=== PATIENT | female | born 1955 | race Caucasian/White ===

== ENCOUNTER 2024-10-05 15:30 | Outpatient (CLI) | payer MEDICARE, MEDICAID, SELFPAY ==
--- NOTE | 2024-10-05 14:30 | DI.RAD_ITS ---
Exam(s) XR PELVIS AP EXAM: XR PELVIS AP CLINICAL HISTORY: BILATERAL HIP OA. TECHNIQUE: 2D digital imaging was performed. Single AP view. COMPARISON: CR XR HIP RT MIN 2V AND PELVIS from 06/14/2024 FINDINGS: BONES: No acute fracture is present. No bony destructive lesion is seen. JOINTS: No dislocation present. Moderate bilateral hip joint space narrowing. Prominent spurring fr om the acetabula as well as femoral heads, right greater than left. The SI joints and pubic symphysi s are unremarkable. SOFT TISSUE: Normal. IMPRESSION: No acute abnormality. Moderate to severe degenerative changes of both hips. DATA REPOSITORY: RADIATION DOSE DELIVERED:
== END 2024-10-05 15:31 | disposition home or self-care (01) ==
LOC: DIORS 15:30
PROVIDERS: PCP Family Medicine; Referring Provider Family Medicine; Visit Provider Student in an Organized Health Care Education/Training Program
DX: M16.11 Unilateral primary osteoarthritis, right hip; M16.12 Unilateral primary osteoarthritis, left hip; E11.9 Type 2 diabetes mellitus without complications; Z79.84 Long term (current) use of oral hypoglycemic drugs
CPT/HCPCS: 99204; 72170

== ENCOUNTER 2024-11-23 07:18 | Observation (INO) | payer MEDICARE, MEDICAID, SELFPAY ==
[2024-11-23] VITALS (45 sets, daily range): BP systolic 49–142; BP diastolic 19–77; PULSE 66–136; RESP 12–24; TEMP 36.1–37; O2SAT 94–100; BMI 26.4
[2024-11-23] MEDS: Celecoxib 200 MG CAP 400 MG PO (06:44)
[2024-11-23] MEDS: Acetaminophen 500 MG TAB 1000 MG PO ×2 (06:44→15:33)
--- NOTE | 2024-11-23 07:09 | ANES.PREOP_ITS ---
General Info Date of Service Date Performed: 11/23/24 Height: 5 ft 2 in Weight: 65.6 kg Body Mass Index (BMI): 26.4 Surgical Procedure: Operation Date: 11/23/24 08:00 Proposed Procedure Side Surgeon p Hip Total Hip Anterior Bilateral, Corail Bilateral Isaiah Bird MD Meds Allergies and Home Medications Allergies Allergy/AdvReac Type Severity Reaction Status Date / Time No Known Allergies Allergy Verified 11/23/24 06:24 Home Medication ?Medication ?Instructions ?Recorded cholecalciferol (vitamin D3) 25 25 mcg PO DAILY 08/09/24 mcg (1,000 unit) capsule citalopram 40 mg tablet 20 mg PO DAILY 08/09/24 magnesium oxide 400 mg (241.3 mg 400 mg PO DAILY 08/09/24 magnesium) tablet multivitamin 1 tab PO DAILY 08/09/24 riboflavin (vitamin B2) 400 mg 400 mg PO DAILY 08/09/24 tablet risperidone 2 mg tablet 2 mg PO DAILY 08/09/24 trazodone 50 mg tablet 50 mg PO DAILY 08/09/24 acetaminophen 500 mg tablet 1,000 mg (2 x 500 mg) PO TID #90 11/23/24 tabs aspirin 81 mg tablet,delayed 81 mg PO BID #60 tabs 11/23/24 release calcium carbonate (Tums Ultra) mg calcium supplement 11/23/24 celecoxib 200 mg capsule 200 mg PO BID #60 caps 11/23/24 dexamethasone 4 mg tablet 4 mg PO DAILY #2 tabs 11/23/24 oxycodone 5 mg tablet 5 mg PO Q4H PRN pain #20 tabs 11/23/24 pantoprazole 40 mg tablet,delayed 40 mg PO DAILY #30 tabs 11/23/24 release Current Visit Medications: Current Medications Generic Name Dose Route Start Last Admin Trade Name Freq PRN Reason Stop Dose Admin Acetaminophen 1,000 mg 11/23/24 06:00 11/23/24 06:44 Acetaminophen 500 Mg Tab PO 11/23/24 23:59 1,000 mg PREOP GAB Administration Celecoxib 400 mg 11/23/24 06:00 11/23/24 06:44 Celecoxib 200 Mg Cap PO 11/23/24 23:59 400 mg PREOP GAB Administration Gabapentin 300 mg 11/23/24 06:00 Gabapentin 300 Mg Cap PO 11/23/24 23:59 PREOP GAB Ringer's Solution 1,000 mls @ 80 mls/hr 11/23/24 06:00 IV 11/23/24 23:59 INFUSION GAB Cefazolin Sodium/Dextrose 2 gm in 50 mls @ 100 mls/hr 11/23/24 06:00 Ancef Duplex IVPB 11/23/24 23:59 PREOP GAB Tranexamic Acid/Sodium Chloride 1,000 mg in 100 mls @ 600 mls/hr 11/23/24 06:00 IVPB 11/23/24 23:59 PREOP GAB Tranexamic Acid/Sodium Chloride 1,000 mg in 100 mls @ 600 mls/hr 11/23/24 06:00 IVPB 11/23/24 23:59 DIRECTED GAB IV Miscellaneous Supplies 1 each 11/23/24 06:00 Iv Access IV 11/23/24 23:59 DIRECTED GAB Sodium Chloride 0 ml 11/23/24 06:00 Normal Saline Flush 10 Ml Syr IV 11/23/24 23:59 PRN PRN Sodium Chloride 0 ml 11/23/24 06:00 Normal Saline 10 Ml Vial IJ 11/23/24 23:59 DIRECTED PRN Sterile Water 0 ml 11/23/24 06:00 Water,Injection,Sterile 10 Ml Vial IJ 11/23/24 23:59 DIRECTED PRN PFSH Active Problems Active Problems: Problem Status Onset Code Osteoarthritis of left hip Acute M16.12 Osteoarthritis of right hip Acute M16.11 Ventricular premature complex Acute I49.3 Type 2 diabetes mellitus Acute E11.9 Recurrent major depressive episodes Acute F33.9 PTSD (post-traumatic stress disorder) Acute F43.10 Polyp of colon Acute K63.5 Osteoporosis Chronic M81.0 Lung nodule Acute R91.1 Enlarged heart Acute I51.7 Chronic back pain Acute M54.9, G89.29 Anxiety Chronic F41.9 Medical History Medical History Hx of Impaired cognition Depression Bilateral bunions Chest pain Amnesia Medical History Comments:: Lots of nausea, 1997 Surgical History Surgical History History of varicose vein stripping History of colonoscopy Tobacco Smoking/Tobacco Use Status: Former Tobacco Use Alcohol Alcohol Intake: former Substance Use Substance use type: does not use Vital Signs and Lab Results Vital Signs Most Recent Vital Signs in EMR: Most Recent Vital Signs Temp Pulse Resp BP Pulse Ox 36.6 C 79 16 142/77 H 99 11/23/24 06:33 11/23/24 06:33 11/23/24 06:33 11/23/24 06:33 11/23/24 06:33 Lab Results Blood Type / Crossmatch: Antibody Screen Pending 11/23/24 Complete Blood Count: No Data to Display Complete Metabolic Panel: No Data to Display Liver Function Panel: No Data to Display Coagulation Panel: No Data to Display Cardiac Panel: No Data to Display Arterial Blood Gas: No Data to Display Venous Blood Gas: No Data to Display Pancreas Panel: No Data to Display Thyroid Panel: No Data to Display Infectious Disease: No Data to Display Blood Cultures: No Data to Display Toxicology Panel: No Data to Display Anesthesia Assessment and Plan Anesthesia History Personal History: PONV Family History: No Family History of Anesthesia Complications Exercise Tolerance Exercise Tolerance: Metabolic Equivalents>4 Pertinent Negatives Pertinent Negatives: No Symptoms of GERD Cardiac & Pulmonary Exam Cardiac Exam: Normal S1/S2 Heart Sounds Pulmonary Exam: Clear Bilateral Breath Sounds Implantable Cardiac Device Does patient have a Pacemaker or an ICD?: No Airway Exam Known Difficult Airway: No Mallampati Class: 2 Mouth Opening: Normal (> 3cm) Thyromental Distance: Less than 3 cm Neck Range of Motion: Full ROM Neck Circumference: Normal Teeth Condition: Removable Dentures/Plates Upper and Removable Dentures/Plates Lower ASA Classification ASA Score: ASA 2 Emergency Case?: No NPO Status NPO Status: NPO Clears >2 hours, Solids >8 hours Anesthesia Plan Resuscitation Status: Full Code Anesthesia Technique: Spinal Anesthesia Airway Planned: Natural Airway Monitors Used: Standard Monitors Preoperative Comments:: Pt. states she had a stress test in [place] this year that was normal. Denies chest pressure/pain or SOB other than one event when she came up the stairs more quickly. Does not have any information on enlarged heart and does not believe she has ever had an echo. Recent EKG was normal. No murmur heard.
[2024-11-23] MEDS: Lactated Ringers 1,000 ML 80 ML IV (07:15)
--- NOTE | 2024-11-23 07:20 | PDOC.DSDIS_ITS ---
Date of service: 11/23/24 Discharge Plan Disposition Patient Disposition: Home Condition: Good Discharge Details Reason For Visit: B/L THR Attending Provider: Isaiah Bird Primary Care Provider: Kapil Valencia Home Meds and New Rx's Prescriptions: New celecoxib 200 mg capsule 200 mg PO BID Qty: 60 0RF aspirin 81 mg tablet,delayed release (DR/EC) 81 mg PO BID Qty: 60 0RF acetaminophen 500 mg tablet 1,000 mg PO TID Qty: 90 3RF pantoprazole 40 mg tablet,delayed release (DR/EC) 40 mg PO DAILY Qty: 30 0RF dexamethasone 4 mg tablet 4 mg PO DAILY Qty: 2 0RF oxycodone 5 mg tablet 5 mg PO Q4H MDD 6 tabs PRN (Reason: pain) Qty: 20 0RF Continued cholecalciferol (vitamin D3) 25 mcg (1,000 unit) capsule 25 mcg PO DAILY citalopram 40 mg tablet 20 mg PO DAILY magnesium oxide 400 mg (241.3 mg magnesium) tablet 400 mg PO DAILY multivitamin Tablet 1 tab PO DAILY risperidone 2 mg tablet 2 mg PO DAILY trazodone 50 mg tablet 50 mg PO DAILY riboflavin (vitamin B2) 400 mg tablet 400 mg PO DAILY calcium carbonate [Tums Ultra] 400 mg calcium (1,000 mg) tablet,chewable Patient Comments: our box shows ultra strength calcium carbonate 1,000mg Discontinued acetaminophen 500 mg tablet 1,000 mg PO TID PRN aspirin [Adult Low Dose Aspirin] 81 mg tablet,delayed release (DR/EC) 81 mg PO DAILY celecoxib [Celebrex] 100 mg capsule 100 mg PO BID ibuprofen 600 mg tablet 600 mg PO BID PRN (Reason: to manage hip and back pain) tramadol 50 mg tablet 25 mg PO TID Discharge Instructions Additional Instructions: Total Hip Discharge Instructions Activity: The most important activity is to walk. You should try to take short walks a few times a day. You have no restrictions on movement or positioning, but do not try to force what you do. You will find some stiffness and weakness with hip flexion (lifting your knee). Do not try to strengthen this too early, continue to practice walking and stairs and this will come. - Outpatient physical therapy can be helpful to help return you to a normal gait and improve your flexibility and strength. This can start around 2 weeks. For some patients, it?s not necessary. Usually this is determined at the time of discharge or at the first post-operative visit. - You should wear the MYRNA hose on both legs for 2 weeks. Dressing: Keep the surgical dressing in place for at least one week. After the first week it may be removed and replace with light gauze and tape or nothing. It may get wet after 3 days but avoid soaking the dressing. If it gets wet, just lightly pat dry. It is important to always keep some gauze between skin folds, especially when you are sitting. Spend some time with the wound exposed when you are lying flat as the incision does wrinkle onto itself. Medications: - You should take Tylenol and an anti-inflammatory Celebrex as your primary pain control medications. If the Celebrex is too expensive or not covered, please call the office for another alternative (Advil/Ibuprofen or Naproxen/Aleve). - You have been prescribed a stronger pain medication Oxycodone for breakthrough pain, take as needed as prescribed. - You have also been prescribed a stomach acid reduction agent Pantoprozole to help reduce stomach acid and reflux. - You have also been prescribed Decadron to help with post-operative nausea and pain. You will take this for two days starting tomorrow. - You will be taking Aspirin 81mg twice a day for DVT prevention unless instructed otherwise. - If you have constipation you should take Colace or Miralax (both [id number]). It takes most people 3-4 days to have a bowel movement. Follow-up: 2 weeks If you have any acute concerns or questions, please do not hesitate to contact the office at [phone]. You may contact Dr. Bird with any questions after hours through the hospital at [phone] or on his cell phone at [phone]. Referrals: Isaiah Bird MD [ [facility] STAFF PHYSICIAN] - Equipment/Supplies: Walker Activity:: Activity as Tolerated Shower/Bathe:: 72 hours Diet:: As Tolerated Discharge Orders Discharge Orders: Discharge Order (Routine); Ordered 11/23/24 Ordered By: Scooter Ford DS: Diagnosis Discharge Diagnosis (1) Osteoarthritis of left hip: Status: Acute (2) Osteoarthritis of right hip: Status: Acute
[2024-11-23] MEDS: ceFAZolin 2 GM/50 ML BAG IVPB (07:47)
[2024-11-23] MEDS: TRANEXAMIC ACID/SOD. CHL. 1,000 MG/100 ML BAG 600 MG IVPB ×2 (08:02→09:25)
--- NOTE | 2024-11-23 08:08 | ROE_ITS ---
Operative Note Operative Note PRE-OP DIAGNOSIS: Bilateral Hip Osteoarthritis POST-OP DIAGNOSIS: same PROCEDURE: Bilateral Anterior Total Hip Arthroplasty with Intraoperative Navigation SURGEON: Isaiah Bird BILLET HEATER: Scooter Ford ANESTHESIA TYPE: Spinal Refer to Anesthesia Record ESTIMATED BLOOD LOSS: 500 PATHOLOGY: none sent COMPLICATIONS: Other (There was a small posterolateral fracture of the left greater trochanter, less than 1 cm. A similar type avulsion fracture was on the right side as well.) Patient was transported to: PACU Patient's condition: stable Implants: RIGHT: 1. Depuy [place] Acetabular Component, 54mm 2. Depuy Acetabular Liner, [id number] 3. Depuy Corail Standard 125 degree collared Femoral Stem, Size 13 4. Depuy Altrx Ceramic Femoral Head, Size 36+8.5mm LEFT: 1. Depuy [place] Acetabular Component, 54mm 2. Depuy Acetabular Liner, [id number] 3. Depuy [place] Standard Collared Femoral Stem, Size 13 4. Depuy Altrx Ceramic Femoral Head, Size 36+1.5mm Indications: I have seen Cristiana in clinic for symptoms of bilateral hip arthritis, confirmed with radiographic findings. She has exhausted nonoperative methods and was having significant limitations in daily function and desired better function and less pain. I discussed the technical details of a hip replacement. I explained the risks of the procedure to include, but not limited to, bleeding, infection, pain, stiffness, fracture, damage to nerves and vessels, damage to muscles and tendons, loosening, instability, leg length inequality, need for repeat procedure, blood clot and cardiopulmonary demise. Despite these risks, Cristiana elected to proceed. Findings: There was significant signs of arthritis throughout both hips with osteophytes throughout. Procedure Description: Cristiana was greeted in the preoperative holding area where the correct side was identified and marked. The consent was reviewed with the patient and signed. The history and physical was updated. All questions were answered. She was taken back to the operating room. A spinal anesthestic was then administered. The patient was placed into the supine position on the HANA table. Both feet were wrapped with [place]br[place] cotton wrap along with Coban. LEFT Side The feet were placed in specialized boots for the HANA table, well seated within the boot and secured. SCDs were applied. The patient was then slid down onto a peroneal post. A preoperative AP hip was obtained to serve as a reference for determining leg lengths. Prophylactic antibiotics in the form of Cefazolin were administered. 1g of Tranxemic Acid was given intravenously within 30 minutes of incision. The left leg was then prepped with Chloraprep and draped in a standard fashion. A second prep with Chloraprep was performed prior to placement of a shower-curtain type drape with Iodine impregnated skin protection. A timeout to confirm correct identity, side and site, procedure, allergies, anesthesia, and medical concerns was performed. An obliquely oriented incision was made starting lateral to the ASIS and running distal over the Tensor Fascia Zulay (TFL) muscle belly toward the fibular head, approximately 10cm. The skin and soft tissue was dissected sharply, through Ted?s fascia, and to the fascia of the TFL. With the fascia and superior border of the IT band identified, the fascia was incised with a new knife just above any perforators from the IT band. The TFL muscle belly was bluntly dissected away from the fascia and moved laterally. The fat between TFL and rectus was identified to ensure the dissection was not within the TFL. Blunt dissection created space between abductors and the capsule and retractor was placed over the lateral femoral neck. The fibers of the rectus femoris tendon were identified and these were freed from the anterior capsule. A second cobra retractor was placed around the medial femoral neck. The TFL was further retracted laterally to show the deep fascia. Careful dissection through this layer identified three main crossing vessels of the lateral femoral circumflex. These were cauterized in multiple locations and then cut without any noticeable bleeding. The TFL was further released bluntly from the deep fascia to expose anterior hip capsule and fat The soft tissue orthopaedic retractor was then placed beneath the TFL and against sartorius and medial soft tissues to protect and retract the soft tissues. A T-capsulotomy was then performed starting at the superior lateral acetabulum and moving distally to the intertrochanteric ridge. These capsular flaps were tagged with a No. 1 Ethibond and elevated from within. The capsular flaps were released to the shoulder of the lateral neck and to the lesser trochanter to give excellent visualization of the proximal femur. There were abundant osteophyte seen throughout the proximal femur as well as the rim of the acetabulum. After removing osteophytes from the neck, a neck osteotomy was performed using an oscillating saw based on preoperative templates. This cut started in the shoulder and of the lateral neck and exited medially. The saw was at all times directed medially to avoid injury to the greater trochanter. Gentle traction was applied to the leg and the osteotomy opened. The femoral head was removed with a corkscrew, making sure to protect the TFL on its exit. This was measured on the back table to determing the starting reamer size. Portions of the rectus obscuring visualization were minimally elevated off the superior acetabulum. An anterior retractor was placed over the anterior wall between capsule and labrum and attached to the Gripper retraction system. A posterior retractor was placed similarly. This provided excellent visualization. The contents of the cotyloid fossa were removed with electrocautery and the labrum was removed with a knife. There was a notable floor osteophyte. There was significant chondromalacia of the superior acetabulum. Acetabular reaming began with a 49mm reamer. This first reaming was directed anterior to posterior and medial to get down to the true floor. This was inspected and reamed until the true floor was reached. The anterior retractor was then released and entry and exit was provided by traction on the capsular flaps. I then reamed sequentially up to a 54mm reamer where good fit was obtained. The larger reamers were oriented based on anatomical reference of the anterior and lateral jordan to ensure proper abduction and anteversion. Positioning and size was confirmed with the fluoroscopy. A 54mm Depuy [place] acetabular component was selected. The acetabulum was reamed around the periphery with the selected acetabular size to prevent a rim fit. The deep tissues were irrigated. The acetabular component was then impacted in a position of about 40-45 degrees of abduction and 15-20 degrees of anteversion, using the patient?s anatomy as the ultimate landmark. Fluoroscopy was used to confirm this. There was e xcellent slice cutting machine operator helper of the acetabular component and the inserting handle was removed. The acetabular liner, Depuy [id number] polyethylene liner, was inserted and lined up with the tines of the acetabular component. There was no soft tissue interposition. The liner was then impacted into position and confirmed to be well-seated. A portion of the dewayne-articular cocktail was then injected around the acetabulum into the capsule and periosteum. This cocktail consisted of 123mg of Ropivacaine, 0.25mg of Epinephrine, 0.04mg of Clonidine, and 15mg of Ketorolac, diluted to 50cc. Traction was released from the femur. The leg was rotated to 120 degrees. Any remaining medial capsule was released until the lesser trochanter was easily palpable. A Babcock retractor was placed medially. The lateral capsule was further released into the shoulder to allow access to the greater trochanter. A Babcock retractor was placed over the greater trochanter which allowed the trochanter to flip in front of the capsule for excellent exposure. The leg was brought down into maximal extension and 20 degrees of adduction while ensuring there was no impingement on the acetabulum. Any remnant capsule within the trochanter was released. Piriformis and obturator externis were identified and protected. There was excellent access to the proximal femur. The lateral neck remnant was removed with a rongeur. A blunt canal probe was used to identify the canal and trajectory for later broaching. A box osteotome initiated the broach course. A small curved rasp and a curved curette were used to work laterally. Broaching then began with a size 8 Corail broach. This was inserted manually around the trochanter and into the canal before mallet blows. The broach was seated to a few millimeters below the cut level based on the neck cut and the preoperative template. Sequential broaching was continued manually until a tight fit was obtained with good rotational control of the femur. A trial standard neck was inserted along with a +1.5 trial head. The leg was brought out of extension and adduction and then reduced with traction and internal rotation. The leg was stable anteriorly in a position of 30 degrees of extension and 90 degrees of external rotation. Fluoroscopy was used to ensure there was no fracture and the stem was seated well. Leg lengths were checked with an AP pelvis and pelvic reference points. [employer] navigation system was used to confirm appropriate positioning and leg length and offset. Once content with the desired offset and leg lengths, the leg was brought back into extension, external rotation and adduction. The periosteum and surrounding tissue was injected with remaining portion of the dewayne-articular cocktail. The proximal femur was irrigated as well as the deep tissues. The ICONICuy Corail standard collared stem, size 13, was then manually inserted into the proximal femur making sure to control rotation. It was then malleted into position with light blows, giving breaks to allow bone expansion and decrease risk of fracture. The selected Depuy Altrx Ceramic Head, size 36+1.5mm, was then placed onto the clean and dry trunnion and secured with impaction onto the tapered fit. The leg was brought back out of extension and adduction and reduced with traction and internal rotation. Stability was confirmed with no shuck at 90 degrees of external rotation and 30 degrees of extension. No impingement through range of motion arc. Final x-ray images were obtained with fluoroscopy to confirm adequate positioning and no intraoperative fracture. There was noticed to be a small avulsion type fracture from the lateral aspect of the tip of the greater trochanter, less than 1 cm. It was hinged, opening medially but not from the host bone. The deep tissues were thoroughly irrigated with Surgiphor betadine solution. The second dose of TXA 1g was administered intravenously.The capsule was then reapproximated with the previously placed Ethibond sutures. The TFL fascia was finally closed with a No. 2 Stratafix, barbed suture. Deep tissues were then reapproximated with 0 Vicryl and a running 2-0 Vicryl. The skin was closed with a running 4-0 Monocryl in a subcuticular fashion. This was reinforced with skin glue. A Mepilex silver dressing was applied. RIGHT Side Keeping the back table sterile, the drapes were removed, light handles changed, and fluoroscopy switched rooms sides. Once again, a AP hip was obtained to serve as a reference for determining leg lengths. The right leg was then prepped with Chloraprep and draped in a standard fashion. A second prep with Chloraprep was performed prior to placement of a shower-curtain type drape with Iodine impregnated skin protection. A timeout was once again performed to ensure that there were no issues to proceed. An obliquely oriented incision was made starting lateral to the ASIS and running distal over the Tensor Fascia Zulay (TFL) muscle belly toward the fibular head, approximately 10cm. The skin and soft tissue was dissected sharply, through Ted?s fascia, and to the fascia of the TFL. With the fascia and superior border of the IT band identified, the fascia was incised with a new knife just above any perforators from the IT band. The TFL muscle belly was bluntly dissected away from the fascia and moved laterally. The fat between TFL and rectus was identified to ensure the dissection was not within the TFL. Blunt dissection created space between abductors and the capsule and retractor was placed over the lateral femoral neck. The fibers of the rectus femoris tendon were identified and these were freed from the anterior capsule. A second cobra retractor was placed around the medial femoral neck. The TFL was further retracted laterally to show the deep fascia. Careful dissection through this layer identified three main crossing vessels of the lateral femoral circumflex. These were cauterized in multiple locations and then cut without any noticeable bleeding. The TFL was further released bluntly from the deep fascia to expose anterior hip capsule and fat The soft tissue orthopaedic retractor was then placed beneath the TFL and against sartorius and medial soft tissues to protect and retract the soft tissues. A T-capsulotomy was then performed starting at the superior lateral acetabulum a nd moving distally to the intertrochanteric ridge. These capsular flaps were tagged with a No. 1 Ethibond and elevated from within. The capsular flaps were released to the shoulder of the lateral neck and to the lesser trochanter to give excellent visualization of the proximal femur. A neck osteotomy was performed using an oscillating saw based on preoperative templates. This cut started in the shoulder and of the lateral neck and exited medially. The saw was at all times directed medially to avoid injury to the greater trochanter. Gentle traction was applied to the leg and the osteotomy opened. The femoral head was removed with a corkscrew, making sure to protect the TFL on its exit. This was measured on the back table to determing the starting reamer size. Portions of the rectus obscuring visualization were minimally elevated off the superior acetabulum. An anterior retractor was placed over the anterior wall between capsule and labrum and attached to the Gripper retraction system. A posterior retractor was placed similarly. This provided excellent visualization. The contents of the cotyloid fossa were removed with electrocautery and the labrum was removed with a knife. There was a notable floor osteophyte. There was significant chondromalacia of the superior acetabulum. Acetabular reaming began with a 49mm reamer. This first reaming was directed anterior to posterior and medial to get down to the true floor. This was inspected and reamed until the true floor was reached. The anterior retractor was then released and entry and exit was provided by traction on the capsular flaps. I then reamed sequentially up to a 54mm reamer where good fit was obtained. The larger reamers were oriented based on anatomical reference of the anterior and lateral jordan to ensure proper abduction and anteversion. Positioning and size was confirmed with the fluoroscopy. A 54mm Depuy [place] acetabular component was selected. The acetabulum was reamed around the periphery with the selected acetabular size to prevent a rim fit. The deep tissues were irrigated. The acetabular component was then impacted in a position of about 40-45 degrees of abduction and 15-20 degrees of anteversion, using the patient?s anatomy as the ultimate landmark. Fluoroscopy was used to confirm this. There was excellent slice cutting machine operator helper of the acetabular component and the inserting handle was removed. The acetabular liner, Depuy [id number] polyethylene liner, was inserted and lined up with the tines of the acetabular component. There was no soft tissue interposition. The liner was then impacted into position and confirmed to be well-seated. A portion of the dewayne-articular cocktail was then injected around the acetabulum into the capsule and periosteum. This cocktail consisted of 123mg of Ropivacaine, 0.25mg of Epinephrine, 0.04mg of Clonidine, and 15mg of Ketorolac, diluted to 50cc. Traction was released from the femur. The leg was rotated to 120 degrees. Any remaining medial capsule was released until the lesser trochanter was easily palpable. A Babcock retractor was placed medially. The lateral capsule was further released into the shoulder to allow access to the greater trochanter. Exposure was quite challenging. The posterior capsule was notably contracted and the tissues around the hip are also contracted. I sequentially continue to release tissue from the greater trochanter. Then, the leg was brought down into maximal extension and 20 degrees of adduction while ensuring there was no impingement on the acetabulum. Any remnant capsule within the trochanter was released. Obturator externis were identified and protected however, some of the attachment of the posterior capsule released off of osteophytes from the posterior femoral neck to allow medialization of the femur. At this point we now had appropriate access to the proximal femur. The lateral neck remnant was removed with a rongeur. A blunt canal probe was used to identify the canal and trajectory for later broaching. A box osteotome initiated the broach course. A small curved rasp and a curved curette were used to work laterally. Broaching then began with a size 8 [place]ail broach. This was inserted manually around the trochanter and into the canal before mallet blows. The broach was seated to a few millimeters below the cut level based on the neck cut and the preoperative template. Sequential broaching was continued manually until a tight fit was obtained with good rotational control of the femur. A trial standard 135 degree neck was inserted along with a +1.5 trial head. The leg was brought out of extension and adduction and then reduced with traction and internal rotation. The leg was stable anteriorly in a position of 30 degrees of extension and 90 degrees of external rotation. Fluoroscopy was used to ensure there was no fracture and the stem was seated well. Leg lengths were checked with an AP pelvis and pelvic reference points. [employer] vigation system was used to confirm appropriate positioning and leg length and offset. To better recreate offset leg length, I switched to a 125 degree standard neck with a +8.5 mm head. Once content with the desired offset and leg lengths, the leg was brought back into extension, external rotation and adduction. The periosteum and surrounding tissue was injected with remaining portion of the dewayne-articular cocktail. The proximal femur was irrigated as well as the deep tissues. At this point there was noted to be an avulsion type fracture from the lateral aspect of the greater trochanter tip, less than 1 cm, similar to the contralateral side. It was stable and left in place. There is no distal extension of fracture. The Depuy [place] standard 125 deg collared stem, size 13, was then manually inserted into the proximal femur making sure to control rotation. It was then malleted into position with light blows, giving breaks to allow bone expansion and decrease risk of fracture. The selected Depuy Altrx Ceramic Head, size 36+8.5mm, was then placed onto the clean and dry trunnion and secured with impaction onto the tapered fit. The leg was brought back out of extension and adduction and reduced with traction and internal rotation. Stability was confirmed with no shuck at 90 degrees of external rotation and 30 degrees of extension. No impingement through range of motion arc. Final x-ray images were obtained with fluoroscopy to confirm adequate positioning and no intraoperative fracture. The deep tissues were thoroughly irrigated with Betadine solution. The capsule was then reapproximated with the previously placed Ethibond sutures. The TFL fascia was finally closed with a No. 2 Stratafix, barbed suture. Deep tissues were then reapproximated with 0 Vicryl and a running 2-0 Vicryl. The skin was closed with a running 4-0 Monocryl in a subcuticular fashion. This was reinforced with skin glue. A Mepilex silver dressing was applied. At the end of the case, all counts were correct. Cristiana was transferred to the hospital bed without difficulty. Sadeta has a good prognosis. Physical therapy will start today and without restrictions, weight-bearing as tolerated. Aspirin 81mg BID will be used for DVT prophylaxis. Date of Procedure: 11/23/24
--- NOTE | 2024-11-23 09:13 | DI.RAD_ITS ---
Exam(s) XR HIP LT IN OR EXAM: XR HIP LT IN OR CLINICAL HISTORY: LEFT HIP OA. TECHNIQUE: 2D and realtime digital imaging was performed. COMPARISON: No exams were available for comparison FINDINGS: A hard copy image shows placement of a left hip prosthesis. The alignment appears satisfactory. Please see procedure note for details. Fluoro time: 34.0seconds RADIATION DOSE DELIVERED: Ka,r=3.03 mGy
--- NOTE | 2024-11-23 10:57 | DI.RAD_ITS ---
Exam(s) XR HIP RT IN OR EXAM: XR HIP RT IN OR CLINICAL HISTORY: RIGHT HIP OA. TECHNIQUE: 2D and realtime digital imaging was performed. COMPARISON: CR XR PELVIS AP from 10/05/2024 FINDINGS: A hard copy image shows placement of a right hip prosthesis. The alignment appears satisfactory. Please see procedure note for details. Fluoro time: 37.8seconds RADIATION DOSE DELIVERED: Ka,r=3.44 mGy
--- NOTE | 2024-11-23 13:08 | W.ANESPOSTOP ---
Postoperative Evaluation Date, Time and Location Date Performed: 11/23/24 Time Performed: 12:15 Patient Location: PACU Vital Signs Most Recent Imported Vital Signs: Most Recent Vital Signs Temp Pulse Resp BP Pulse Ox 36.4 C L 97 H 18 96/62 L 100 11/23/24 12:47 11/23/24 12:47 11/23/24 12:47 11/23/24 12:47 11/23/24 12:47 Pain Score Most Recent Pain Score: Most Recent Pain Score Pain Level 0 11/23/24 12:47 Assessment Mental Status: Awake (Alert & Oriented to Patient Baseline) Airway and Respiratory Function: Patent airway with normal (patient baseline) respiratory exam Cardiovascular Function: Hemodynamically Stable Hydration Status: Adequately Hydrated Nausea & Vomiting: No Nausea or Vomiting Pain: Pt. Denies Any Pain Peripheral Nerve Block: Patient did not receive a nerve block
--- NOTE | 2024-11-23 14:25 | PDOC.ANES ---
Date of service: 11/23/24 Time of Service: 14:25 Anesthesia Note Report Anesthesia Note: Called to evaluate patient for orthostatic hypotension. Pt. in DSU sitting in chair with HR in 80's. Reportedly BP down to 40's systolic and HR up to 130's upon standing and feeling faint. She now feels better. Gave 250ml LR bolus with improvement, although still orthostatic but now low BP is 80's systolic and HR into 120's. Will administer one more 250ml Bolus and administer 5mg PO Midodrine and recheck. If improved will move to PT. If not will evaluate option of observation in the hospital for the night. Will also encourage PO fluids.
[2024-11-23] MEDS: Midodrine 2.5 MG TAB 5 MG PO ×2 (14:45→21:05)
--- NOTE | 2024-11-23 16:19 | PT.INIE ---
PT Notes Visit Reasons: B/L THR Physical Therapy Day Surgery Initial Evaluation Date: 11/23/24 Referring Doctor: Scooter Ford/ Dr Bird PT Orders: PT CONSULT: PT evaluation s/p Ortho Surgery Precautions: WBAT BLE, TEDs x 2 weeks, Fall risks, Standard, Monitor Vitals/ BP Patient Profile/Admitting Diagnosis: Pt is a 69 yo female presenting s/p elective B KIARA d/t OA under spinal anesthesia. Pt post op complicated by hypotension . PMHX: Osteoarthritis of left hip (Acute) Osteoarthritis of right hip (Acute) Ventricular premature complex (Acute) Type 2 diabetes mellitus (Acute) Recurrent major depressive episodes (Acute) PTSD (post-traumatic stress disorder) (Acute) Polyp of colon (Acute) Osteoporosis (Chronic) Lung nodule (Acute) Enlarged heart (Acute) Chronic back pain (Acute) Anxiety (Chronic) Medical History Impaired cognition Depression Bilateral bunions Chest pain Amnesia Social History/Home Situation: Pt lives in 1 story home with 3 SHASTA with railing. Pt independent with ambulation, ADL and light meal prep prior to surgery. Her daughter recently provides assistance with laundry and transportation. Laundry is in the basement. Equipment Owned/DME: [employer] just purchased 1 week ago Subjective: Pt reports she would like to try to get to the bathroom prior to walking in the jar[place] ( via translation from her daughter) Objective: General Observation: pale face female in Semifowler position on stretcher with ice packs to B hips. Her daughter is present providing translation. Pt drinking water. Nurse present. Mental Status: Alert and oriented x 4. per translation by daughter. Pt able to follow gestures and answer basic questions of pain, lightheadedness and nausea in mongolian. Pain: B hips 3/10 via translation by daughter Vitals: Supine BP 96/62 HR 97 Sit BP 107/66 HR 106 Stand BP 49/19 HR 123 supine BP 89/50 HR 106 ROM: Right Upper Extremity: WFL Left Upper Extremity: WFL Right Lower Extremity: WNL KNEE AND ANKLE; Hip flexion 92 degrees, hip abduction 10 degrees, extension 5 degrees Left Lower Extremity:WNL KNEE AND ANKLE; Hip flexion 94 degrees, hip abduction 5 degrees, extension 5 degrees Strength: Right Upper Extremity: demonstrates full AROM all joints Left Upper Extremity: demonstrates full AROM all joints Right Lower Extremity:Hip flexion: 3-/5; hip abduction: 2 /5; hip extension:3- /5; knee extension: 3 /5; knee flexion: 3- /5 ankle DF: 3 /5 ; ankle PF: 3 /5 Left Lower Extremity: Hip flexion: 3- /5; hip abduction: 2 /5; hip extension: 3- /5; knee extension: 3 /5; knee flexion: 3- /5 ankle DF: 3 /5 ; ankle PF: 3 /5 Sensation: intact Bed Mobility/Transfers: Supine to sit min A of 1 Sit to stand CGA of 2 with VCs for hand placement( daughter translating) Stand to sit CGA of 2 with VCs for hand placement( daughter translating) Bed to chair CGA of 2 with FWW Gait: Pt able to take 2 steps with FWW and CGA of 2 prior to sensation of lightheadedness.Ambulation discontinued pt transferred to chair and reclined with Nurse present and taking Vital signs. Stairs : Unable to Assess d/t medically unable. Balance: Static Sitting: Fair Dynamic Sitting: fair Static Standing: Fair Dynamic Standing: Poor Special Tests: Mobility Limitations Standardized Measure [facility] 6 clicks Basic Mobility Inpatient Short Form: Raw Score: 13 CMS Score: 64.91% Informed Consent/Education: Patient and daughter instructed in purpose of PT consult, goals. Assessment: Patient is a 69 yo female presents with clinical signs and symptoms consistent with current/admitting diagnoses that have resulted to mobility limitations, gait instability, generalized weakness, and impairment of motor control as demonstrated by the following impairment level findings: 1. Decreased strength to BLE major muscle groups 2. Impaired standing balance 3. Impaired functional activity tolerance 4. hypotension Impairments are contributing to the following functional limitations: 1. Inability to safely ambulate without assistive device 2. Increase completion time for mobility ADL performance 3. Increased fall risk 4. decline in ability to safely perform stairs without assistance Pt evaluation discontinued after episode of Hypotension. Pt would benefit from further skilled PT assessment for ambulation and stairs when medically stable to participate.. Patient is assessed as a moderate complexity based on the following: History: 69-year-old female with impairment level findings, functional limitations, and past medical history as indicated above Examination: Demonstrable impairment in strength, balance, and mobility level with underlying impairments and functional limitations as documented above Presentation: evolving Decision Making: moderate Goals: 1. supervised bed mobility 2. supervised transfers with FWW 3. supervised ambulation with FWW >150 feet level surfaces with turns without increased pain 4. CGA 3 steps with rail and [employer] step to pattern to safely enter and exit her home 5. Supervision with written HEP Plan of Care/Treatment Plan: PT evaluation and 1-2 treatments for functional mobility, gait and therapeutic exercise / HEP DISCHARGE RECOMMENDATIONS:Home with HHPT when medically appropriate TREATMENT CODE/TIME:30426/ [id number] Thank you for the opportunity to participate in the care of this patient. Rahel Shin, PT [facility]
--- NOTE | 2024-11-23 17:35 | W.PC.ACHO ---
Registration Status: Primary Language: Preferred Language: Medical / Surgical History (Last Reviewed 11/23/24 @ 06:35 by Dominga Shaffer) Hx of Impaired cognition Depression Bilateral bunions Chest pain Amnesia (Last Reviewed 11/23/24 @ 06:35 by Dominga Shaffer) History of varicose vein stripping History of colonoscopy Most Recent Vital Signs Temperature 36.5 C 11/23/24 17:01 Temperature Source Temporal Artery Scan 11/23/24 17:01 Pulse 73 11/23/24 17:01 Pulse Rhythm Regular 11/23/24 06:33 Pulse 70 11/23/24 12:01 Respiratory Rate 17 11/23/24 17:01 Respiratory Depth Normal 11/23/24 06:33 Blood Pressure 112/57 L 11/23/24 17:01 Blood Pressure Mean 54 11/23/24 15:15 Blood Pressure Position Standing 11/23/24 15:15 Pulse Oximetry 96 11/23/24 17:01 Respiratory End-tidal CO2 41 11/23/24 11:56 Oxygen Delivery Method Room Air 11/23/24 17:01 Oxygen Flow Rate 0 11/23/24 17:01 Pain Level 0 11/23/24 16:25 Comment pt. assisted to sitting in recliner with legs up after stating she could no longer stand. Wesley Oneill cRNA in room. Call reed within reach. 11/23/24 15:15 Allergies No Known Allergies Allergy (Verified 11/23/24 06:24) Active Medications Generic Name Dose Route Start Last Admin Trade Name Freq PRN Reason Stop Dose Admin Acetaminophen 1,000 mg 11/23/24 06:00 11/23/24 06:44 Acetaminophen 500 Mg Tab PO 11/23/24 23:59 1,000 mg PREOP GAB Administration Acetaminophen 1,000 mg 11/23/24 07:18 11/23/24 15:33 Acetaminophen 500 Mg Tab PO 12/23/24 07:17 1,000 mg TID PRN PRN Administration Analgesia Celecoxib 400 mg 11/23/24 06:00 11/23/24 06:44 Celecoxib 200 Mg Cap PO 11/23/24 23:59 400 mg PREOP GAB Administration Ringer's Solution 1,000 mls @ 80 mls/hr 11/23/24 06:00 11/23/24 11:19 IV 11/23/24 23:59 80 mls/hr INFUSION GAB Infusion Cefazolin Sodium/Dextrose 2 gm in 50 mls @ 100 mls/hr 11/23/24 06:00 11/23/24 08:02 Ancef Duplex IVPB 11/23/24 23:59 Infused PREOP GAB Infusion Tranexamic Acid/Sodium Chloride 1,000 mg in 100 mls @ 600 mls/hr 11/23/24 06:00 11/23/24 08:12 IVPB 11/23/24 23:59 Infused PREOP GAB Infusion Tranexamic Acid/Sodium Chloride 1,000 mg in 100 mls @ 600 mls/hr 11/23/24 06:00 11/23/24 09:35 IVPB 11/23/24 23:59 Infused DIRECTED GAB Infusion IV IV Catheter Type [Right Hand] Peripheral IV IV Catheter Gauge [Right Hand] 20 Diet Orders Category Date Time Status Regular/Normal [DIET] Nutrition 11/23/24 Lunch Active Diagnostics 11/23/24 11/23/24 Range/Units 18:00 07:07 Hgb Pending Hct Pending ABO/Rh O Positive Antibody Screen NEGATIVE Intake and Output - 24 Hour Total 10/10/24 10:39 thru 11/23/24 16:25 Intake Total 1720 Output Total 525 Balance 1195 Weight 65.6 kg Intake: IV 850 Oral 870 Output: Urine 25 Estimated Blood Loss 500 Other: Urine Color Pale Yellow Urine Appearance Clear Emesis Description None Urinary Catheter Urinary Catheter Date of 11/23/24 Insertion [Straight] Time of insertion [Straight] 11:14 v v v v v v v v v Sending and/or Receiving Nurses: Please use comment section below to note any information pertinent to the patient hand-off not included above. Information / Comments: Operative report reviewed at bedside. Patient was hypotensive in OR and PACU when sitting upright for long periods of time. Surgical site is dermabond and mepilex dressing only. Most recent vital signs reviewed and patient's daughter requesting to stay bedside overnight due to refusal of translation services. Discharge paperwork given to [facility]. Report received from: Isabel RN (OFFICE AUDITOR)
[2024-11-23] MEDS: ceFAZolin 1 GM/50 ML BAG IVPB ×2 (17:42→23:36)
[2024-11-23 18:29] LABS: HCT 31.2 % (36.0-46.0); HGB 10.6 g/dL (11.2-15.7)
[2024-11-23] MEDS: Tranexamic Acid 650 MG TAB 1300 MG PO (20:54)
[2024-11-23] MEDS: risperiDONE 1 MG TAB 2 MG PO (20:55)
[2024-11-23] MEDS: Celecoxib 200 MG CAP PO (20:55)
[2024-11-23] MEDS: Aspirin E.C. 81 MG TABEC PO (20:55)
[2024-11-24] VITALS (9 sets, daily range): BP systolic 90–139; BP diastolic 53–82; PULSE 71–152; RESP 16–18; TEMP 36.6–37; O2SAT 94–98
--- NOTE | 2024-11-24 02:35 | NUR.NOTE ---
Nursing Note: this evening , went to go in room to give blood. family declined the blood. provider was notified about this and stated they could wait. Her blood pressure was wnl. pt was feeling well at that time. Continues to feel well. able to stand pivot to the commode without difficulties.
[2024-11-24] MEDS: Acetaminophen 500 MG TAB 1000 MG PO (02:45)
[2024-11-24] MEDS: Midodrine 2.5 MG TAB 5 MG PO ×3 (06:18→15:45)
[2024-11-24 06:54] LABS: HCT 29.4 % (36.0-46.0); HGB 10.1 g/dL (11.2-15.7); MCH 31.4 pg (27.0-33.0); MCHC 34.4 % (32.0-36.0); MCV 91 fL (80-95); MPV 9.4 fL (8.0-11.0); Platelet Count 172 10^3/uL (130-400); RBC 3.22 10^6/uL (3.93-5.22); RDW 11.7 % (11.7-14.6); RDW-SD 39.3 fL; WBC 9.37 10^3/uL (4.4-10.8)
[2024-11-24 07:14] LABS: Anion Gap 7.2 mmol/L (3-11); BUN 15 mg/dL (7-18); CO2 27.8 mmol/L (21.0-32.0); Calcium 8.9 mg/dL (8.5-10.1); Chloride 104 mmol/L (98-107); Estimated GFR 61.75 (mL/min/1.73m2); Glucose 152 mg/dL (74-106); Potassium 4.5 mmol/L (3.5-5.1); Sodium 139 mmol/L (136-145)
--- NOTE | 2024-11-24 07:48 | W.PM.PROGNOT ---
Date of Service Date of service: 11/24/24 Time of Service: 07:25 Assessment and Plan Assessment and plan (1) Osteoarthritis of left hip: Status: Acute (2) Osteoarthritis of right hip: Status: Acute Assessment and plan: Status post bilateral hip replacements yesterday. There was 500 cc of blood loss but no other notable complications. She denies any significant pain. Weightbearing as tolerated. Mobilize with PT after blood and hopefully discharge to home. (3) Orthostatic hypotension: Status: Acute Assessment and plan: Cristiana merchant has a history of orthostatic hypotension. This has been made worse from surgery. Combination of surgery, acute blood loss, chronic hypotension issues, medications and stress from surgery is likely leading to this. Given her symptomatic hypotension with a relative drop of greater than 4 g of her hemoglobin, I would recommend transfusing 1 unit of blood. She has been evaluated for abnormal rhythms which is negative with a Zio patch at [facility]. There is a remote history of some cardiomyopathy although I do not see any other significant studies nor does she have significant peripheral edema and no cardiac symptoms. Continue with midodrine 5 mg every 8 hours. I will also consult with hospital service to make sure there is no other additional recommendations or changes which should be made. Plan for blood transfusion and then repeat orthostatics and mobilization with physical therapy. (4) Acute blood loss anemia: Status: Acute Assessment and plan: Falling hemoglobin now down to 10.1 from 14.2 with symptoms. Therefore, I will transfuse 1 unit of blood. Subjective Subjective Interval history since last seen: Cristiana reports no to minimal pain. She was admitted due to persistent hypotension with any attempted standing. She has been able to sit at the bedside and get over to the commode but has done so with some symptoms of lightheadedness despite a very reasonable blood pressure while at rest. Orthostatics not been repeated this morning however, she reports being symptomatic with sitting with her legs down or trying to stand. No complaints of pain. No chest pain or shortness of breath. Exam Narrative Exam Narrative: Resting in the hospital bed. No acute distress. Alert and oriented x 3. Evaluation of bilateral hip shows clean dry and intact dressings. She tolerates passive flexion, internal rotation, and external rotation of both legs. Sensation intact to light touch over the femoral sided nerve distributions. Intact ankle dorsiflexion, plantarflexion, EHL, FHL bilaterally. Objective Last Vital Signs Temp 37.0 C 11/24/24 06:20 Pulse 71 11/24/24 06:20 Resp 16 11/24/24 06:20 BP 109/53 L 11/24/24 06:20 Pulse Ox 96 11/24/24 06:20 Laboratory Results - last 24 hr 11/23/24 11/23/24 11/24/24 07:07 18:21 06:30 WBC 9.37 RBC 3.22 L Hgb 10.6 L 10.1 L Hct 31.2 L 29.4 L MCV 91 MCH 31.4 MCHC 34.4 RDW 11.7 Plt Count 172 MPV 9.4 Sodium 139 Potassium 4.5 Chloride 104 Carbon Dioxide 27.8 Anion Gap 7.2 BUN 15 Creatinine 1.0 Est GFR (CKD-EPI 2020) 61.75 Glucose 152 H Calcium 8.9 ABO/Rh O Positive Blood Type Recheck O Positive Antibody Screen NEGATIVE Crossmatch See Detail Time Spent with Patient Time Spent with Patient: 25-34 minutes Time was spent: preparing to see the patient(eg.review tests), obtaining and/or reviewing separately otained hiistory, ordering medications,tests, procedures, referring, communicating with other health neonatal intensive care unit nurse, indepentently interpreting results and counseling the patient
[2024-11-24] MEDS: ceFAZolin 1 GM/50 ML BAG IVPB (08:30)
[2024-11-24] MEDS: Pantoprazole 40 MG TABCR PO (08:41)
[2024-11-24] MEDS: Cholecalciferol (Vitamin D3) 1,000 UNIT TAB 1000 UNITS PO (08:41)
[2024-11-24] MEDS: Citalopram 20 MG TAB PO (08:41)
[2024-11-24] MEDS: Aspirin E.C. 81 MG TABEC PO ×2 (08:41→20:08)
[2024-11-24] MEDS: Multivitamin TAB 1 TAB PO (08:41)
[2024-11-24] MEDS: Celecoxib 200 MG CAP PO ×2 (08:41→20:15)
[2024-11-24] MEDS: diphenhydrAMINE 25 MG CAP PO (08:42)
[2024-11-24] MEDS: Dexamethasone 4 MG TAB PO (08:42)
[2024-11-24] MEDS: Magnesium Oxide 400 MG TAB PO (08:42)
--- NOTE | 2024-11-24 09:48 | PDOC.CMIN ---
Date of service: 11/24/24 Time of Service: 09:48 Care Management Initial Assmt Initial Assessment Reason for Hospitalization: THR Post op anemia and hypotension Functional Status/Living Situation Patient Presentation: Cristiana was lying in bed visiting with her daughter Hiwot when CM met with her. She was pleasant and agreeable to conversation however due to a language barrier, deferred to Hiwot to answer most of the questions. Cristiana was admitted for a bilateral total hip replacement. The surgery went well however she developed some post-operative orthostatic hypotension, necessitating an overnight stay. Cristiana lives in [place] with her shalom and her daughter's family. She is independent at baseline and does not receive any community services. Town of Residence: [place] Resides with: Child (daughter and family) Employment Status: Disabled Instrumental Activities of Daily Living (ADLs): Independent Medications Medication Management: No Issues/Barriers identified Physical Functioning/Mobility Assistive Device: walker Advance Directives Advance Directives: Do you have an Advance Directive: AD On File at [facility]: N 11/15/24 17:41 Date Asked 11/15/24 11/15/24 17:41 AD Date Reviewed COLST On File at [facility] COLST Date Scanned Code Status Resuscitation Status Full Code Insurance Coverage/Financial Issues Insurance: Medicare Part B only Care Team Visit Care Team Role Provider Type Kapil Valencia MD Primary Care Provider NON-[facility] STAFF PHYSICIAN InPatient Royal Arina Other Providers OTHER Isaiah Bird MD Admit Provider [facility] STAFF PHYSICIAN Attending Provider Discharge Potential Discharge Needs: PCP F/U Appt and Surgical F/U Appt Anticipated Barriers to Discharge: Medical Status Patient/Family Education Needs: Review discharge instructions, discuss Ask Me Three Transportation: Private vehicle Plan: Anticipate Cristiana will be discharged home with no new services when medically cleared. She will follow up with her community providers and plan of care and transport with family. CM will follow and continue to assess for discharge needs. PFSH All Active Problems (Updated 11/24/24 @ 09:31 by Nan Noriega RN) History of bilateral total hip arthroplasty (Acute 11/23/24) Acute blood loss anemia (Acute) Orthostatic hypotension (Acute) Ventricular premature complex (Acute) Type 2 diabetes mellitus (Acute) Recurrent major depressive episodes (Acute) PTSD (post-traumatic stress disorder) (Acute) Polyp of colon (Acute) Osteoporosis (Chronic) Lung nodule (Acute) Enlarged heart (Acute) Chronic back pain (Acute) Anxiety (Chronic) Medical History (Updated 11/24/24 @ 09:31 by Nan Noriega RN) Hx of Impaired cognition Depression Bilateral bunions Chest pain Amnesia Surgical History (Updated 11/24/24 @ 09:31 by Nan Noriega RN) History of varicose vein stripping History of colonoscopy Social History Smoking/Tobacco Use Status: Former Tobacco Use Smoking risk assessment performed?: Yes Alcohol Intake: former Substance use type: does not use Housing: other Do you feel safe at home: Yes Do you feel safe in your relationship?: Yes Additional Social history: [employer]AP SDOH(Care Management) Screening Will the Patient Participate in the Screening?: Unable to obtain Do you worry about having a steady place to live?: no Problems where you live: no known problems In the past 12 months, have you had to go without electric, gas, oil or water in your home?: no Have you or anyone in your house had to go without enough food to eat?: no Has lack of transportation kept you from medical appointments or from doing things needed for daily living?: no Has anyone in your support network made you feel unsafe for any reason?: no
--- NOTE | 2024-11-24 11:35 | PT.INNT ---
PT Notes Visit Reasons: B/L Hip OA Pt not available for treatment this am as she was receiving blood transfusion. Spoke with her daughter regarding plan after transfusion and recommendation for PT when medically appropriate for discharge. 12 mins spent with family. No charge
--- NOTE | 2024-11-24 14:00 | RT.EKG_ITS ---
APPROVED REPORT Exam: Resting ECG Reason for Exam: orthostatic hypotension, presyncope Patient Location: I HR:88 bpm ECG Measurements Heart Rate 88 AXIS TX 165 P 14 QRSd 82 QRS 43 QT 351 T 47 QTc 425 Conclusion Sinus rhythm...normal P axis, V-rate 50- 99 Normal Electrocardiogram
--- NOTE | 2024-11-24 14:40 | W.PM.HP.N ---
Date of service: 11/24/24 Time of Service: 13:50 History of Present Illness History of Present Illness Chief Complaint: dizzy Narrative: 69 yo F with history of well controlled type 2 diabetes, stable depression PFSH All Active Problems (Updated 11/24/24 @ 09:31 by Nan Noriega RN) History of bilateral total hip arthroplasty (Acute 11/23/24) Acute blood loss anemia (Acute) Orthostatic hypotension (Acute) Ventricular premature complex (Acute) Type 2 diabetes mellitus (Acute) Recurrent major depressive episodes (Acute) PTSD (post-traumatic stress disorder) (Acute) Polyp of colon (Acute) Osteoporosis (Chronic) Lung nodule (Acute) Enlarged heart (Acute) Chronic back pain (Acute) Anxiety (Chronic) Medical History (Updated 11/24/24 @ 09:31 by Nan Noriega RN) Hx of Impaired cognition Depression Bilateral bunions Chest pain Amnesia Surgical History (Updated 11/24/24 @ 09:31 by Nan Noriega RN) History of varicose vein stripping History of colonoscopy Social History Smoking/Tobacco Use Status: Former Tobacco Use Smoking risk assessment performed?: Yes Alcohol Intake: former Substance use type: does not use Housing: other Do you feel safe at home: Yes Do you feel safe in your relationship?: Yes Additional Social history: UTAP Meds Allergies and Home Medications Allergies Allergy/AdvReac Type Severity Reaction Status Date / Time No Known Allergies Allergy Verified 11/23/24 06:24 Home Medications ?Medication ?Instructions ?Recorded ?Confirmed ?Type cholecalciferol (vitamin D3) 25 25 mcg PO DAILY 08/09/24 11/23/24 History mcg (1,000 unit) capsule citalopram 40 mg tablet 20 mg PO DAILY 08/09/24 11/23/24 History magnesium oxide 400 mg (241.3 mg 400 mg PO DAILY 08/09/24 11/23/24 History magnesium) tablet multivitamin 1 tab PO DAILY 08/09/24 11/23/24 History riboflavin (vitamin B2) 400 mg 400 mg PO DAILY 08/09/24 11/23/24 History tablet risperidone 2 mg tablet 2 mg PO HS 08/09/24 11/23/24 History trazodone 50 mg tablet 50 mg PO DAILY 08/09/24 11/20/24 History acetaminophen 500 mg tablet 1,000 mg (2 x 500 mg) PO TID #90 11/23/24 Rx tabs aspirin 81 mg tablet,delayed 81 mg PO BID #60 tabs 11/23/24 Rx release calcium carbonate (Tums Ultra) mg calcium supplement 11/23/24 History celecoxib 200 mg capsule 200 mg PO BID #60 caps 11/23/24 Rx dexamethasone 4 mg tablet 4 mg PO DAILY #2 tabs 11/23/24 Rx oxycodone 5 mg tablet 5 mg PO Q4H PRN pain #20 tabs 11/23/24 Rx pantoprazole 40 mg tablet,delayed 40 mg PO DAILY #30 tabs 11/23/24 Rx release Results Labs 11/24/24 06:30 11/24/24 06:30 Labs: Laboratory Results - last 24 hr 11/23/24 11/23/24 11/24/24 07:07 18:21 06:30 WBC 9.37 RBC 3.22 L Hgb 10.6 L 10.1 L Hct 31.2 L 29.4 L MCV 91 MCH 31.4 MCHC 34.4 RDW 11.7 Plt Count 172 MPV 9.4 Sodium 139 Potassium 4.5 Chloride 104 Carbon Dioxide 27.8 Anion Gap 7.2 BUN 15 Creatinine 1.0 Est GFR (CKD-EPI 2020) 61.75 Glucose 152 H Calcium 8.9 ABO/Rh O Positive Blood Type Recheck O Positive Antibody Screen NEGATIVE Crossmatch See Detail Last Vital Signs Temp 36.8 C 11/24/24 11:47 Pulse 89 11/24/24 13:55 Resp 16 11/24/24 11:47 BP 133/60 11/24/24 13:55 Pulse Ox 97 11/24/24 11:47
--- NOTE | 2024-11-24 15:00 | DI.US_ITS ---
APPROVED REPORT EXAM: Comprehensive 2D, Doppler, and color-flow Echocardiogram Patient Location: In-Patient Room/Bed: 231 Commis Chef: Parrish Patricia RDCS (AE) Indications: Hypotension, presyncope post op Conclusion Technically difficult study Normal left ventricular wall thickness and chamber size. Ejection fraction is 60 to 65%. Wall motio n is normal Normal right ventricular size and function Both atria are normal in size There is no structural or hemodynamically significant valvular disease Estimated right ventricular systolic pressure is 34 mmHg Wall motion Left Ventricle The left ventricle is normal size. The left ventricular systolic function is normal. The left ventric ular ejection fraction is within the normal range. There is normal left ventricular wall thickness. T here is normal LV segmental wall motion. There is no ventricular septal defect visualized. LVEF is 60 -65%. Right Ventricle The right ventricle is normal size. The right ventricular systolic function is normal. Atria The left atrium size is normal. The right atrium size is normal. The interatrial septum is intact wit h no evidence for an atrial septal defect. Aortic Valve Aortic valve is grossly normal in structure. There is no aortic valvular stenosis. No aortic regurgit ation is present. Mitral Valve The mitral valve is normal in structure. No evidence of mitral valve stenosis. Trace mitral regurgita tion. Tricuspid Valve The tricuspid valve is normal in structure. There is no tricuspid valve stenosis. Mild tricuspid regu rgitation. The RVSP is 34.1 mmHg. Pulmonic Valve Pulmonic valve is not well visualized. There is no pulmonic valvular regurgitation. Great Vessels The aortic root is normal in size. Ascending aorta is not well visualized. Aortic arch is not well vi sualized. IVC is normal in size and collapses >50% with inspiration. Pericardium Prominent anterior epicardial fat pad is present. 2D Dimensions IVSD d PLAX 1.00 cm F: 0.6-1.0 Ao Root d 3.10 cm F: 2.7 - 3.3 LVPW d PLAX 1.01 cm F: 0.6 - 1.0 LVID d PLAX 5.75 cm F: 3.8 - 5.2 LVDs 3.81 cm F: 2.2 - 3.5 LV EF Teichholz 61.9 % FS 33.81 % LV EDV (Teich) 163.6 mL LV ESV (Teich) 62.3 mL Stroke Vol Index (Teich) 60.65 M-Mode TAPSE 2.19 cm (M/F) >1.7 Auto EF LV EDV A4C 90.5 mL LV EDV A2C 113.6 mL LV EDV BP 101.9 mL LV ESV A4C 33.4 mL LV ESV A2C 43.4 mL LV ESV BP 38.3 mL LVEF(%) A4C 63.1 % LVEF(%) A2C 61.8 % LVEF(%) BP 62.4 % LV SV A4C 57.1 ml LV SV A2C 70.2 ml LV SV BP 63.6 ml LV CO A4C 4.6 L/min LV CO A2C 5.8 L/min LV CO BP 5.2 L/min HR A4C 80.18 BPM HR A2C 82.38 BPM LV EDV Index (BP) LA Volume LA Length A4C 3.7 cm LA Length A2C 4.6 cm LA Area A4C s 7.95 cm2 LA Area A2C s 14.70 cm2 LA Vol A4C A-L 14.56 mL LA Vol A2C A-L 39.74 mL LA Vol Biplane A-L 26.9 mL LA Vol/BSA A4C A-L LA Vol/BSA A2C A-L LA Vol/BSA BP A-L 16.1 mL/m2 LA Vol A4C MOD 12.5 mL LA Vol A2C MOD 34.0 mL LA Vol BP MOD 23.1 mL RA Volume RA Area A4C 7.6 cm2 RA ESV A4C (A-L) 13.0mL RA Vol/BSA A4C A-L RA Length A4C 3.8 cm RA ESV A4C (MOD) 12.7mL LV Diastology MV E' medial 0.086 (>0.07 m/s) MV E Vmax 0.73 (0.4-1.3 m/s) MV E/E' MED 8.49 (<14) MV A Vmax 0.80 (0.4-1.3 m/s) MV E' lateral 0.100 (>0.1 m/s) E/A Ratio 0.9 MV E/E' LAT 7.31 (<14) MV E' Average 0.093 m/s MV E/E'(average) 7.85 Aortic Valve AoV Vmax 1.43 m/s LVOT Vmax 1.22 m/s AoV Peak Grad 8.2 mmHg LVOT Peak Grad 5.9 mmHg AoV Area (Vmax) 2.47 cm2 LVOT VTI 0.209 m AoV VTI 0.247 m LVOT Mean Grad 3.0 mmHg AoV Mean Chaitanya. 0.93 m/s LVOT SV 60.84 mL AoV Mean Grad 4.0 mmHg LVOT Diam s 1.90 cm AoV Area (VTI) 2.46 cm2 AV Regurg Peak Gr. 8.20 mmHg Velocity Ratio 0.85 Mitral Valve MV DT 121 (160-240 msec) MV Vmax TIPS 0.88 m/s MV Mean Grad 1.2 (<2mmHg) MV VTI 0.229 m Pulmonary Valve PV Vmax 0.85 (0.5-1.5 m/s) PV Peak Grad 2.9 mmHg PV Mean Chaitanya 0.52 m/s PV Mean Grad 1.3 mmHg Tricuspid Valve RA Pressure 3.00 mmHg TR Vmax 2.79 m/s TR Peak Grad 31.1 mmHg RVSP (TR) 34.1 mmHg
--- NOTE | 2024-11-24 15:36 | MCONE_ITS ---
Date of service: 11/24/24 Time of Service: 13:50 Assessment and Plan Assessment and plan (1) Orthostatic hypotension: Status: Acute Assessment and plan: This has been present prior to surgery but significantly worse post operatively. EKGs pre-op and now reassuring. Will monitor on telemetry while she is here. No known heart disease but cardiomegaly on her list, ordered echocardiogram. She is on SSRI and risperidone, both associated with orthostasis. Change citalopram to escitalopram, less ADRs with only active form of drug. Trazodone on home list but she is not taking. She has been stable on these meds for years so after discussion with daughter I will not change psych med more. Could consider SSRI to SNRI transition. Blood loss and anesthesia likely contributing, she felt better with blood transfusion. Follow H/h. Agree with midodrine, upped to full 10mg dose. Trial with salty foods, if symptoms improved after salt bolus could try fludricortisone. Her electrolytes don't suggest adrenal insufficiency, however. Treat pain, mobilize with PT. (2) Type 2 diabetes mellitus: Status: Acute Assessment and plan: Diet controlled, repeat A1c to confirm still well controlled. (3) Acute blood loss anemia: Status: Acute Assessment and plan: s/p 1 unit RBC, as above, follow h/h. History of Present Illness History of Present Illness Chief Complaint: dizzy Narrative: 69 yo F with history of diet controlled type 2 DM, stable depression with psychosis, and osteoarthritis who was admitted 11/23 for bilateral anterior total hip arthroplasty. EBL was 500ml. Postoperatively she was unable to mobilize due to orthostatic hypotension, so she was observed overnight. Midodrine 5mg TID was started (she was never on this previously, though she had some less severe orthostatic symptoms in the past that were attributed to her hip pain). This morning, she was transfused 1 unit pRBC as her hgb had dropped 4% from preoperative levels. Prior to surgery there were no major medication changes. She was getting some tramadol. Her risperidone was decreased from 3mg to 2mg. She had a pre-op visit with her PCP from [facility] with a reassuring EKG and no other cardiac testing. Her A1c was 6.1% in June. She has no known heart disease, though per daughter had some heart testing in the past. No known neurologic conditions such as neuropathy or parkinsons. Currently she feels well sitting in bed but lightheaded with standing. Nursing performed repeat orthostatic pulse/BP that were documented, still very abnormal with standing. Review of Systems All systems reviewed & are unremarkable except as noted in HPI and below Eyes Eyes: Denies loss of vision ENT Ears, Nose, Mouth, and Throat: Denies vertigo Cardiovascular Cardiovascular: Denies chest pain, Denies chest pain with activity, Denies dyspnea on exertion and Denies orthopnea Respiratory Respiratory: Denies cough, Denies excessive phlegm production and Denies dyspnea on exertion Neurologic Neurologic: Denies abnormal speech, Denies confusion, Denies vertigo, Denies localized weakness, Denies loss of vision, Denies convulsions, Denies paresthesias and Denies tremor(s) Psychiatric Psychiatric: Denies confusion and Denies mood swings PFSH All Active Problems History of bilateral total hip arthroplasty (Acute 11/23/24) Acute blood loss anemia (Acute) Orthostatic hypotension (Acute) Ventricular premature complex (Acute) Type 2 diabetes mellitus (Acute) Recurrent major depressive episodes (Acute) PTSD (post-traumatic stress disorder) (Acute) Polyp of colon (Acute) Osteoporosis (Chronic) Lung nodule (Acute) Enlarged heart (Acute) Chronic back pain (Acute) Anxiety (Chronic) Medical History Hx of Impaired cognition Depression Bilateral bunions Chest pain Amnesia Surgical History History of varicose vein stripping History of colonoscopy Social History Smoking/Tobacco Use Status: Former Tobacco Use Smoking risk assessment performed?: Yes Alcohol Intake: former Substance use type: does not use Housing: other Do you feel safe at home: Yes Do you feel safe in your relationship?: Yes Additional Social history: [facility] Exam Narrative Exam Narrative: GEN: Alert and oriented, pleasant and cooperative, daughter gives history/translation but patient follows. No acute distress at rest. HEENT: Head atraumatic. Conjunctiva clear, no icterus. PEERL, EOMI. no rhinorrhea. MMM, OP benign. Neck is supple with no masses or lymphadenopathy, trachea midline LUNGS: CTAB with normal effort CV: RRR with no murmurs, gallops, or rubs. ABD: active bowel sounds, soft, nontender and nondistended. No masses. EXT: no cyanosis, clubbing, or edema MSK: No joint redness or swelling, pain not severe with sitting/standing NEURO: CN 2-12 grossly intact. Normal movement of 4 extremities. Normal speech and coordination. No tremor with rest or movement. SKIN: No rashes, wounds dressed. PSYCH: normal mood and affect. Results Last Vital Signs Temp 36.8 C 11/24/24 11:47 Pulse 89 11/24/24 13:55 Resp 16 11/24/24 11:47 BP 133/60 11/24/24 13:55 Pulse Ox 97 11/24/24 11:47 Labs 11/24/24 06:30 11/24/24 06:30 Labs: Laboratory Results - last 24 hr 11/23/24 11/23/24 11/24/24 07:07 18:21 06:30 WBC 9.37 RBC 3.22 L Hgb 10.6 L 10.1 L Hct 31.2 L 29.4 L MCV 91 MCH 31.4 MCHC 34.4 RDW 11.7 Plt Count 172 MPV 9.4 Sodium 139 Potassium 4.5 Chloride 104 Carbon Dioxide 27.8 Anion Gap 7.2 BUN 15 Creatinine 1.0 Est GFR (CKD-EPI 2020) 61.75 Glucose 152 H Calcium 8.9 ABO/Rh O Positive Blood Type Recheck O Positive Antibody Screen NEGATIVE Crossmatch See Detail Imaging EKG: report reviewed and image reviewed (NSR, nl axis, intervals, no ST-T abnormalites)
--- NOTE | 2024-11-24 15:59 | PTTR_ITS ---
PT Notes Visit Reasons: B/L Hip OA Physical Therapy Inpatient Treatment Note Date: 11/24/24 Precautions: WBAT on B LE with AD. Syncopal episode due to low BP. High fall risk. Speaks Bosnian (limited Hong [place]er) daughter is with patient at all times and is able to translate. Subjective: Denied headache, chest pain, and lightheadedness throughout. Very pleasant and cooperative. Motivated to participate. Objective: General Observation: Daughter and friends in room translating and cheering patient on. Minimal pain observed when she tried to scoot to the edge of bed to sit up. Mental Status: Alert and oriented x 4. Able to speak some [place]er. Pain: Short-lived minimal pain during suine>sit Vitals: WNL as measured after walking from edeg of bed to bedside chair Bed Mobility/Transfers: Minimal cueing provided for use of B hands as needed for support, movement sequence, AD management, and posture to reduce fall risk and minimize pain report. Daughter translating every instruction given. Supine to sit stand by assist with HOB at 30 degrees Sit to stand contact guard assist of 2 using FWW Stand to sit contact guard assist of 2 using FWW Bed to chair contact guard assist of 2 using FWW Gait: 6 steps from edge of bed to bedside recliner, 6 steps from chair to bedside commode, 6 steps from bedside commode to bedside recliner without report of nausea, lightheadedness, headache, and chest pain. Contact guard assist of 2 using FWW with minimal cueing for slowed movement transitions, turning, and backing up. Stairs : Not tested today THERA EX: Gluteal sets 5 sh x 5 DBE x 3 Quads sets 5 sh x 5 DBE x 3 Ankle pumps 5 sh x 5 DBE Heel slides.5 sh x 5 DBE Balance: Static Sitting: Good Dynamic Sitting: Good Static Standing: Fair Dynamic Standing: Fair Assessment: Patient was able to perform bed mobility, transfers and very short distance ambulation using FWW and contact guard assist of 2 for safety. No sympotms of orthostasis reported/complained about. No report of incrase pain. No instability observed. Daughter Hiwot was translating every instruction of PT and response of patient. Goals: 1. supervised bed mobility 2. supervised transfers with FWW 3. supervised ambulation with FWW >150 feet level surfaces with turns without increased pain 4. CGA 3 steps with rail and [employer] step to pattern to safely enter and exit her home 5. Supervision with written HEP Plan of Care/Treatment Plan: PT evaluation and 1-2 treatments for functional mobility, gait and therapeutic exercise / HEP DISCHARGE RECOMMENDATIONS: Home with HHPT when medically appropriate TREATMENT CODE/TIME: 95102 x 30 minutes for 2 units, 11927 x 24 minutes for 2 units (15:59-16:53).
[2024-11-24 18:04] LABS: HCT 31.8 % (36.0-46.0); HGB 11.2 g/dL (11.2-15.7)
[2024-11-24] MEDS: risperiDONE 1 MG TAB 2 MG PO (20:08)
[2024-11-24 20:15] LABS: Hemoglobin A1C 5.9 % (<5.7)
[2024-11-25 00:04] VITALS: BP 113/62; PULSE 80; RESP 15; TEMP 37; O2SAT 93
[2024-11-25 02:41] VITALS: BP 122/63; PULSE 82; RESP 17; TEMP 36.5; O2SAT 93
--- NOTE | 2024-11-25 06:52 | DSE_ITS ---
Date of service: 11/25/24 Time of Service: 11:09 DS: Diagnosis Discharge Diagnosis (1) Orthostatic hypotension: Status: Acute (2) Type 2 diabetes mellitus: Status: Acute (3) Acute blood loss anemia: Status: Acute Discharge Plan Disposition Patient Disposition: Home W/Home Health Services Condition: Good Discharge Details Reason For Visit: B/L Hip OA Admit Date/Time: 11/23/24 07:18 Admit Provider: Isaaih Bird Attending Provider: Isaiah Bird Primary Care Provider: Kapil Valencia Hospital Course Hospital Course: Patient was admitted to the medical/surgical floor following the procedure due to persistent orthostatic hypotension in recovery. The surgery was tolerated well without any notable medical, surgical, or anesthetic complications. Mobilization began postoperatively but was limited due to the orthostatic hypotension. She was voiding spontaneously. She was started on Midodrine. She recieved one unit of PRBC due to acute change in Hemoglobin (14 -> 10). Hospitalist consult was obtained with reassuring EKG and TTE. Citalopram was switched to Escitalopram to hopefully liimit potential medication-induced orthostasis. Progressive mobilization was performed with success and without presyncope or syncope. Physical therapy worked with the patient and was cleared for discharge home with home health services. No acute medical issues. Pain was controlled on oral regimen. Home Meds and New Rx's Prescriptions: New celecoxib 200 mg capsule 200 mg PO BID Qty: 60 0RF aspirin 81 mg tablet,delayed release (DR/EC) 81 mg PO BID Qty: 60 0RF acetaminophen 500 mg tablet 1,000 mg PO TID Qty: 90 3RF pantoprazole 40 mg tablet,delayed release (DR/EC) 40 mg PO DAILY Qty: 30 0RF oxycodone 5 mg tablet 5 mg PO Q4H MDD 6 tabs PRN (Reason: pain) Qty: 20 0RF midodrine 10 mg tablet 10 mg PO TID Qty: 42 2RF Rx Instructions: do not give last dose of day after 6PM or within 4 hrs of bedtime escitalopram oxalate 20 mg Tablet 20 mg PO DAILY Qty: 30 0RF docusate sodium [Colace] 100 mg capsule 100 mg PO BID PRNQty: 10 0RF Continued cholecalciferol (vitamin D3) 25 mcg (1,000 unit) capsule 25 mcg PO DAILY magnesium oxide 400 mg (241.3 mg magnesium) tablet 400 mg PO DAILY multivitamin Tablet 1 tab PO DAILY risperidone 2 mg tablet 2 mg PO HS trazodone 50 mg tablet 50 mg PO DAILY riboflavin (vitamin B2) 400 mg tablet 400 mg PO DAILY calcium carbonate [Tums Ultra] 400 mg calcium (1,000 mg) tablet,chewable Patient Comments: our box shows ultra strength calcium carbonate 1,000mg Discontinued acetaminophen 500 mg tablet 1,000 mg PO TID PRN aspirin [Adult Low Dose Aspirin] 81 mg tablet,delayed release (DR/EC) 81 mg PO DAILY celecoxib [Celebrex] 100 mg capsule 100 mg PO BID citalopram 40 mg tablet 20 mg PO DAILY ibuprofen 600 mg tablet 600 mg PO BID PRN (Reason: to manage hip and back pain) tramadol 50 mg tablet 25 mg PO TID Discharge Instructions Additional Instructions: Total Hip Discharge Instructions Activity: The most important activity is to walk. You should try to take short walks a few times a day. You have no restrictions on movement or positioning, but do not try to force what you do. You will find some stiffness and weakness with hip flexion (lifting your knee). Do not try to strengthen this too early, continue to practice walking and stairs and this will come. - Outpatient physical therapy can be helpful to help return you to a normal gait and improve your flexibility and strength. This can start around 2 weeks. For some patients, it?s not necessary. Usually this is determined at the time of discharge or at the first post-operative visit. - You should wear the MYRNA hose on both legs for 2 weeks. Dressing: Keep the surgical dressing in place for at least one week. After the first week it may be removed and replace with light gauze and tape or nothing. It may get wet after 3 days but avoid soaking the dressing. If it gets wet, just lightly pat dry. It is important to always keep some gauze between skin folds, especially when you are sitting. Spend some time with the wound exposed when you are lying flat as the incision does wrinkle onto itself. Medications: - You should take Tylenol (three times a day) and an anti-inflammatory Celebrex (two times a day) as your primary pain control medications. If the Celebrex is too expensive or not covered, please call the office for another alternative (Advil/Ibuprofen or Naproxen/Aleve). - You have been prescribed a stronger pain medication Oxycodone for breakthrough pain, take as needed as prescribed. You may half this tablet as well. - You have also been prescribed a stomach acid reduction agent Pantoprozole to help reduce stomach acid and reflux. - You do not need to take Decadron (dexamethasone) which was initially called in. You completed that here at the hospital. - You will be taking Aspirin 81mg twice a day for DVT prevention unless inst ructed otherwise. - If you have constipation you should take Colace or Miralax (both [id number]). It takes most people 3-4 days to have a bowel movement. Follow-up: 2 weeks If you have any acute concerns or questions, please do not hesitate to contact the office at [phone]. You may contact Dr. Bird with any questions after hours through the hospital at [phone] or on his cell phone at [phone]. 1. Encounter Date and Reason I certify that Cristiana Clifford was seen by Isaiah Bird MD on 11/25/24 and that I had a [id number] encounter with this patient that meets the physician face to face encounter requirements. 2. Clinical Findings Supporting Skilled Need and Homebound Status I certify that home health services are medically necessary, include either intermittent detention and/or physical/speech therapy, and that this patient is homebound in that absences from the home require considerable and taxing effort and are infrequent or of short duration, or are attributable to the need to receive medical care. [X] (a) Attached documentation from encounter provides clinical findings supporting skilled need and homebound status (including what assistance patient requires to leave the home). The encounter with the patient was in whole, or in part, for the following medical condition, which is the primary reason for home health care: B/L Hip OA Halfway: Cristiana would benefit from home health services as she recovers from bilateral hip replacement complicated by persistent and symptomatic orthostatic hypotension as well as some acute blood loss anemia. She has been started on Midodrine to assist with blood pressure management. Physical Therapy: Cristiana would benefit from home health physical and occupational therapy to assist with her weakness and gait limitations. She is weight bearing as tolerated with walker. Initial therapy should focus on ADLs, ambulation, and hip strengthening (external rotation and abduction). Speech Therapy: Homebound: Cristiana is unable to leave her home unassisted. She has significant weakness and stiffness and limited ambulation capacity. 3. Certification and Authentication I certify that I composed the above information based on my clinical judgement relating to this patient's medical condition and, if applicable, clinical findings communicated to me by the NPP or inpatient physician who performed the Home Health Referral. All further orders will be obtained through Dr. Bird Stand Alone Forms: Anesthesia Discharge Inst., Rico Muhammad ([facility]) Referrals: Isaiah Bird MD [ [facility] STAFF PHYSICIAN] - 12/07/24 1:00 pm (PA) Activity:: Activity as Tolerated Equipment/Supplies:: Walker Diet:: As Tolerated Discharge Orders Discharge Orders: Discharge Order (Routine); Ordered 11/25/24 Ordered By: Isaiah Bird DS: Summary Time Spent with Patient providing and/or coordinating discharge services: Less than 30 minutes Status at Discharge Functional status at discharge: uses cane/walker Overall status at discharge: patient is progressing back to baseline Mental Status: mental status grossly normal Speech and Movement: speech and movement normal Mood: congruent mood Affect: normal affect Quality:SDOH Health Related Social Needs: No Data to Display Exam Narrative Exam Narrative: Sitting up in the bed. NAD. AAOx3. B/L hip dressings are clean, dry, and intact. No pain with passive hip IR/ ER/flexion. There is limited external rotation of both hips with notable contraction of the adductors. +Knee extension and flexion bilaterally. SILT DP/SP/Tib. Psych Mental Status: mental status grossly normal Speech and Movement: speech and movement normal Mood: congruent mood Affect: normal affect DS: Data Vitals/I&O Vitals and I&O: Vital Signs Temperature 36.5 C 11/25/24 02:41 Temperature Source Temporal Artery Scan 11/25/24 02:41 Pulse 82 11/25/24 02:41 Pulse Rhythm Regular 11/23/24 18:08 Pulse 70 11/23/24 12:01 Respiratory Rate 17 11/25/24 02:41 Respiratory Effort Normal 11/23/24 18:08 Respiratory Depth Normal 11/23/24 18:08 Respiratory Pattern Normal 11/23/24 18:08 Blood Pressure 122/63 11/25/24 02:41 Blood Pressure Mean 54 11/23/24 15:15 Blood Pressure Position Standing 11/23/24 15:15 Pulse Oximetry 93 11/25/24 02:41 Respiratory End-tidal CO2 41 11/23/24 11:56 Oxygen Delivery Method Room Air 11/25/24 02:41 Oxygen Flow Rate 0 11/25/24 02:41 Pain Level 1 11/24/24 19:29 Comment patient asleep daughter said not to wake for vitals 11/24/24 03:53 Intake & Output 11/24/24 11/24/24 11/25/24 11:59 23:59 11:59 Intake Total 1056 / 1296 240 / 1296 200 / 200 Output Total 650 / 1200 550 / 1200 450 / 450 Balance 406 / 96 -310 / 96 -250 / -250 Intake: IV 60 / 60 Oral 600 / 840 240 / 840 200 / 200 Blood Product 386 / 386 Rbc Leuko Reduced Unit 386 / 386 [id number] Other Rbc Leuko Reduced Unit [id number] Output: Urine 650 / 1200 550 / 1200 450 / 450 Other: Urine Color Yellow Yellow Yellow Urine Appearance Clear Clear Clear Urine Odor Normal Normal Normal Data Completed and Pending Labs on day of discharge: Labs from last 24 hours 11/25/24 11/24/24 11/24/24 07:00 18:00 06:30 WBC 9.37 RBC 3.22 L Hgb 11.2 10.1 L Hct 31.8 L 29.4 L MCV 91 MCH 31.4 MCHC 34.4 RDW 11.7 Plt Count 172 MPV 9.4 Sodium 139 Potassium 4.5 Chloride 104 Carbon Dioxide 27.8 Anion Gap 7.2 BUN 15 Creatinine 1.0 Est GFR (CKD-EPI 2020) 61.75 Glucose 152 H Hemoglobin A1c 5.9 H Calcium 8.9 Cortisol Pending ABO/Rh Antibody Screen Crossmatch 11/23/24 07:07 WBC RBC Hgb Hct MCV MCH MCHC RDW Plt Count MPV Sodium Potassium Chloride Carbon Dioxide Anion Gap BUN Creatinine Est GFR (CKD-EPI 2020) Glucose Hemoglobin A1c Calcium Cortisol ABO/Rh O Positive Antibody Screen NEGATIVE Crossmatch See Detail PFSH All Active Problems History of bilateral total hip arthroplasty (Acute 11/23/24) Acute blood loss anemia (Acute) Orthostatic hypotension (Acute) Ventricular premature complex (Acute) Type 2 diabetes mellitus (Acute) Recurrent major depressive episodes (Acute) PTSD (post-traumatic stress disorder) (Acute) Polyp of colon (Acute) Osteoporosis (Chronic) Lung nodule (Acute) Enlarged heart (Acute) Chronic back pain (Acute) Anxiety (Chronic) Medical History Hx of Impaired cognition Depression Bilateral bunions Chest pain Amnesia Surgical History History of varicose vein stripping History of colonoscopy Social History Smoking/Tobacco Use Status: Former Tobacco Use Smoking risk assessment performed?: Yes Alcohol Intake: former Substance use type: does not use Housing: other Do you feel safe at home: Yes Do you feel safe in your relationship?: Yes Additional Social history: UTAP Time Spent with Patient Time Spent with Patient: <45 minutes Time was spent: preparing to see the patient(eg.review tests), obtaining and/or reviewing separately otained hiistory, ordering medications,tests, procedures and referring, communicating with other health director of health care marketing
[2024-11-25 07:34] VITALS: BP 111/68; PULSE 87; RESP 22; TEMP 36.3; O2SAT 95
[2024-11-25] MEDS: Aspirin E.C. 81 MG TABEC PO (10:10)
[2024-11-25] MEDS: Multivitamin TAB 1 TAB PO (10:10)
[2024-11-25] MEDS: Midodrine 2.5 MG TAB 10 MG PO ×2 (10:10→13:07)
[2024-11-25] MEDS: Pantoprazole 40 MG TABCR PO (10:10)
[2024-11-25] MEDS: Cholecalciferol (Vitamin D3) 1,000 UNIT TAB 1000 UNITS PO (10:10)
[2024-11-25] MEDS: Magnesium Oxide 400 MG TAB PO (10:11)
[2024-11-25] MEDS: Docusate Sodium 100 MG CAP PO (10:11)
[2024-11-25] MEDS: Escitalopram 20 MG TAB PO (10:11)
[2024-11-25] MEDS: Celecoxib 200 MG CAP PO (10:11)
[2024-11-25 11:30] VITALS: BP 130/60; PULSE 92; RESP 18; TEMP 37; O2SAT 96
--- NOTE | 2024-11-25 11:51 | PTTR_ITS ---
PT Notes Visit Reasons: B/L Hip OA Inpatient Physical Therapy Treatment Note [facility] Date: 11/25/24 SUBJECTIVE: no complaints offered. States she is ready to go home. Daughter concerned about drop in bp. OBJECTIVE: []? VITALS: ?monitored by [facility] Therapeutic Activities ([id number]): Direct one-on-one instruction in dynamic activities to improve functional performance. ? BED MOBILITY/TRANSFERS? pt seated in recliner. ? Sit-stand:SBA ? Stand-sit: SBA? Provided skilled cues and instruction on performance and technique throughout. GAIT? Assistive Device:FWW? Weight bearing:AT Assist:CGA? Distance:?8'x4 ? Deviation: slow wayne ? Therapeutic Exercises (27188k6): Direct one-on-one instruction in therapeutic exercises to develop strength, endurance, range of motion and flexibility. ? Exercises ?performed/reviewed HEP. Including QS, GS, AP, heel slides, seated LAQ, marching, bilateral BKFO and hip abd x5-10 each. ASSESSMENT:? tolerated session well. No c/o lightheadedness, pain or fatigue. PLAN: possible d/c today. If she is still here tomorrow will continue to work on strength and functional mobility. TREATMENT CODE/TIME: 40min [id number], [id number] DISCHARGE RECOMMENDATION: home with PT
--- NOTE | 2024-11-25 11:52 | PGE_ITS ---
Date of Service Date of service: 11/25/24 Time of Service: 11:52 Assessment and Plan Assessment and plan (1) Orthostatic hypotension: Status: Acute Assessment and plan: This has been present prior to surgery but significantly worse post operatively. EKGs pre-op and 11/24 reassuring. Telemetry monitoring also reassuring No known heart disease but cardiomegaly on her list, echocardiogram done with priliminary results reassuring She is on SSRI and risperidone, both associated with orthostasis. Change citalopram to escitalopram, less ADRs with only active form of drug. We confirmed that not taking trazodone. She has been stable on these meds for years so after discussion with daughter I will not change psych meds more, but could consider SSRI to SNRI transition as outpatient. Blood loss and anesthesia likely contributing, she felt better with blood transfusion. H/h stable. Agree with midodrine, upped to full 10mg dose. This can likely be tapered as an outpatient. She had been getting steroids for pain at low doses for several weeks, electrolytes don't suggest adrenal insufficiency, but AM cortisol sent this morning. She had some symptoms with pushing hard stool, but other than that her symptoms improved. No longer orthostatic this morning after salty foods, which is reassuring. This suggests that if orthostasis recurs with taper of midodrine, she may be fludricortisone responsive. (2) Type 2 diabetes mellitus: Status: Acute Assessment and plan: Diet controlled with repeat A1c still low at 5.9% (3) Acute blood loss anemia: Status: Acute Assessment and plan: s/p 1 unit RBC, as above, h/h stable. Subjective Subjective Patient reports: tolerating a regular diet, voiding w/o difficulty and no bowel movement; denies nausea, vomiting, shortness of breath or fever Interval history since last seen: Events: Sinus tachycardia when up using bathroom overnight, no symptoms. Echocardiogram done Midodrine increased from 5 to 10mg She was feeling better overnight, but she did get dizzy when pushing a hard bowel movement this morning. She felt lightheaded and had to be helped back to bed from the commode. She hasn't needed pain medication. No chest pain, no bleeding. Exam Narrative Exam Narrative: GEN: Alert and oriented, No acute distress at rest. LUNGS: CTAB with normal effort CV: RRR with no murmurs, gallops, or rubs. ABD: active bowel sounds, soft, nontender and nondistended. EXT: no cyanosis, clubbing, or edema. Objective Last Vital Signs Temp 37 C 11/25/24 11:30 Pulse 92 H 11/25/24 11:30 Resp 18 11/25/24 11:30 BP 130/60 11/25/24 11:30 Pulse Ox 96 11/25/24 11:30 Laboratory Results - last 24 hr 11/23/24 11/24/24 07:07 18:00 Hgb 11.2 Hct 31.8 L Hemoglobin A1c 5.9 H ABO/Rh O Positive Antibody Screen NEGATIVE Crossmatch See Detail Time Spent with Patient Time Spent with Patient: 35-49 minutes Time was spent: preparing to see the patient(eg.review tests), obtaining and/or reviewing separately otained hiistory, ordering medications,tests, procedures, referring, communicating with other health manager home healthcare, indepentently interpreting results, counseling the patient and care coordination
[2024-11-25 13:04] VITALS: BP 131/63; PULSE 81; RESP 18; TEMP 36.5; O2SAT 97
[2024-11-25 13:54] VITALS: BP 105/61; BP 114/57; BP 119/60; PULSE 89
== END 2024-11-25 14:28 | disposition home health service (06) ==
LOC: SUR 07:20 → MS 16:43
PROVIDERS: Family Medicine; Admitting Provider Student in an Organized Health Care Education/Training Program; PCP Family Medicine; Visit Provider Student in an Organized Health Care Education/Training Program
PROC: 0SR90JZ Replacement of Right Hip Joint with Synthetic Substitute, Open Approach (ICD-10-PCS; CPT 27130; principal; 2024-11-23 07:30)
DX: M16.0 Bilateral primary osteoarthritis of hip (principal); D62 Acute posthemorrhagic anemia; M96.662 Fracture of femur following insertion of orthopedic implant, joint prosthesis, or bone plate, left leg; M96.661 Fracture of femur following insertion of orthopedic implant, joint prosthesis, or bone plate, right leg; I95.1 Orthostatic hypotension; E11.9 Type 2 diabetes mellitus without complications; I49.3 Ventricular premature depolarization; F33.9 Major depressive disorder, recurrent, unspecified; F43.10 Post-traumatic stress disorder, unspecified; M81.0 Age-related osteoporosis without current pathological fracture; R91.1 Solitary pulmonary nodule; G89.29 Other chronic pain; F41.9 Anxiety disorder, unspecified; M54.9 Dorsalgia, unspecified; Z79.899 Other long term (current) drug therapy; Y79.2 Prosthetic and other implants, materials and accessory orthopedic devices associated with adverse incidents
CPT/HCPCS: 27130; 20985; 00123; 36415; 80048; 82533; 85027; 86850; 86900; 86901; 86920; 93306; 96365; 96366; 97110; 97162; 97530; 73501; 83036; 85014; 85018; 93005; 93010; 99222; 99233; C1776; G0378; J0665; J0690; J1100; J2250; J2371; J2405; J2704; J8540; P9016

== ENCOUNTER 2024-12-21 15:59 | Outpatient (CLI) | payer MEDICARE, MEDICAID, SELFPAY ==
--- NOTE | 2024-12-21 14:15 | DI.RAD_ITS ---
Exam(s) XR HIP PELVIS ADULT BL EXAM: XR HIP PELVIS ADULT BL INDICATION: 1st post op S/P BILAT THAs. COMPARISON: CR XR PELVIS AP from 10/05/2024 XA XR HIP RT IN OR from 11/23/2024 XA XR HIP LT IN OR from 11/23/2024 TECHNIQUE: 2D digital imaging was performed. Three views. FINDINGS: Stable alignment of bilateral hip prostheses. There are no abnormal surrounding bony lucencies. DATA REPOSITORY: RADIATION DOSE DELIVERED:
== END 2024-12-21 16:00 | disposition home or self-care (01) ==
LOC: DIORS 16:00
PROVIDERS: PCP Family Medicine; Referring Provider Family Medicine; Visit Provider Physician Assistant
DX: Z96.643 Presence of artificial hip joint, bilateral (principal); Z47.1 Aftercare following joint replacement surgery
CPT/HCPCS: 73521; 99024

== ENCOUNTER → 2025-02-12 13:45 | Outpatient (BNVA) | payer MEDICARE, MEDICAID, SELFPAY | PROVIDERS: PCP Family Medicine; Referring Provider Family Medicine; Visit Provider Student in an Organized Health Care Education/Training Program | DX: Z47.1 Aftercare following joint replacement surgery (principal); Z96.643 Presence of artificial hip joint, bilateral | CPT/HCPCS: 99024 ==